=== PATIENT | female | born 1975 | race Two or more races ===

== ENCOUNTER 2017-04-29 14:31 | Emergency (ER) | payer SELFPAY ==
[~2017-04-29] VITALS: Ht 162.6 cm; Wt 82.0 kg
[2017-04-29] MEDS ORDERED: SODIUM CHLORIDE 0.9% 1,000 ML IV ONE (20:25)
[2017-04-29] MEDS ORDERED: KETOROLAC 30MG/ML VIAL IV STA (20:25)
[2017-04-29] MEDS ORDERED: PROCHLORPERAZINE 10MG/2ML VIAL IM ONE (20:30)
[2017-04-29] MEDS ORDERED: DIPHENHYDRAMINE 50MG/ML VIAL IV ONE (20:30)
[2017-04-30 00:22] VITALS: BP 126/70
== END 2017-04-30 00:27 | disposition home or self-care (01) ==
LOC: ER 19:34
DX: S09.90XA Unspecified injury of head, initial encounter (principal); W01.0XXA Fall on same level from slipping, tripping and stumbling without subsequent striking against object, initial encounter; Y93.89 Activity, other specified; Y92.018 Other place in single-family (private) house as the place of occurrence of the external cause
CPT/HCPCS: 96361; 96372; 96374; 96375; 99284; J0780; J1200; J1885; J7030; Z7610